=== PATIENT | female | born 1995 | race African-American/Black ===

== ENCOUNTER 2018-07-03 17:20 | Emergency (ER) | payer OTHER ==
[~2018-07-03] VITALS: Ht 170.2 cm; Wt 85.0 kg
[2018-07-03] MEDS ORDERED: ONDANSETRON HCL 4MG/2ML INJ IV ONE (19:30)
[2018-07-03] MEDS ORDERED: SODIUM CHLORIDE 0.9% 1,000 ML IV ONE (19:30)
[2018-07-03] MEDS ORDERED: DIPHENHYDRAMINE 50MG/ML VIAL IV ONE (19:30)
[2018-07-03 19:32] LABS: BASOPHILS % 0.5 % (0.0-2.0); EOSINOPHILS % 0.2 % (0.0-5.0); HEMATOCRIT. 36.1 % (36.0-48.0); LYMPHOCYTES % 9.3 % (20.0-50.0); MEAN CORPUSCULAR HEMOGLOBIN 31.3 pg (28.0-32.0); MEAN CORPUSCULAR VOLUME 94.3 fL (81.0-99.0); MEAN PLATELET VOLUME 8.4 fl (7.4-10.4); MONOCYTES % 1.2 % (2.0-8.0); NEUTROPHILS % 88.8 % (40.0-76.0); PLATELET 303 x1000/uL (130-400); RED BLOOD CELL COUNT 3.83 mill/uL (4.2-5.4); RED CELL DISTRIBUTION WIDTH 13.4 % (11.6-14.6)
[2018-07-03 19:34] LABS: CLARITY URINE CLEAR (CLEAR); COLOR URINE YELLOW (YELLOW); KETONES URINE 2+ (NEGATIVE); LEUKOCYTE ESTERASE URINE TRACE (NEGATIVE); NITRITE URINE NEGATIVE (NEGATIVE); OCCULT BLOOD URINE NEGATIVE (NEGATIVE); PH URINE 8.5 (4.5-8.0); PROTEIN URINE 1+ (NEGATIVE); SPECIFIC GRAVITY URINE 1.034 (1.005-1.030)
[2018-07-03 19:36] LABS: CHLORIDE 104 mEq/L (98-107)
[2018-07-03 23:40] VITALS: BP 99/61
== END 2018-07-04 00:12 | disposition home or self-care (01) ==
LOC: ER 17:20
DX: R10.9 Unspecified abdominal pain (principal); R11.0 Nausea
CPT/HCPCS: 36415; 80053; 81003; 81025; 83690; 85025; 96374; 96375; 99285; J1200; J2405; J7030; Z7610

== ENCOUNTER 2018-07-30 12:45 | Emergency (ER) | payer OTHER, MEDICAID ==
[~2018-07-30] VITALS: Ht 170.2 cm; Wt 73.0 kg
[2018-07-30] MEDS ORDERED: SODIUM CHLORIDE 0.9% 1,000 ML IV ONE ×2 (13:51→16:15)
[2018-07-30] MEDS ORDERED: ONDANSETRON HCL 4MG/2ML INJ IV STA (13:51)
[2018-07-30] MEDS ORDERED: FAMOTIDINE 20MG/2ML VIAL IV STA (13:51)
[2018-07-30] MEDS ORDERED: KETOROLAC 30MG/ML VIAL IV STA (13:51)
[2018-07-30 14:24] LABS: BASOPHILS % 0.7 % (0.0-2.0); EOSINOPHILS % 0.5 % (0.0-5.0); HEMATOCRIT. 33.1 % (36.0-48.0); HEMOGLOBIN. 11.1 g/dL (12.0-16.0); LYMPHOCYTES % 12.4 % (20.0-50.0); MEAN CORPUSCULAR HEMOGLOBIN 31.4 pg (28.0-32.0); MEAN CORPUSCULAR VOLUME 93.8 fL (81.0-99.0); MEAN PLATELET VOLUME 7.9 fl (7.4-10.4); MONOCYTES % 2.2 % (2.0-8.0); NEUTROPHILS % 84.2 % (40.0-76.0); PLATELET 401 x1000/uL (130-400); RED BLOOD CELL COUNT 3.53 mill/uL (4.2-5.4); RED CELL DISTRIBUTION WIDTH 13.5 % (11.6-14.6)
[2018-07-30 14:31] LABS: INR 1.1; PROTHROMBIN TIME 10.7 sec (9.1-11.1)
[2018-07-30 14:34] LABS: CHLORIDE 106 mEq/L (98-107); ETHANOL BLOOD < 10 mg/dL
[2018-07-30 14:35] LABS: HCG SCREEN NEGATIVE
[2018-07-30 14:40] LABS: CLARITY URINE CLEAR (CLEAR); COLOR URINE YELLOW (YELLOW); KETONES URINE 2+ (NEGATIVE); LEUKOCYTE ESTERASE URINE TRACE (NEGATIVE); NITRITE URINE NEGATIVE (NEGATIVE); OCCULT BLOOD URINE 1+ (NEGATIVE); PROTEIN URINE TRACE (NEGATIVE)
[2018-07-30 15:41] LABS: *AMPHETAMINES SCREEN URINE NEGATIVE (NEGATIVE); *BARBITURATES SCREEN URINE NEGATIVE (NEGATIVE); *BENZODIAZEPINES SCREEN URINE NEGATIVE (NEGATIVE); *COCAINE SCREEN URINE NEGATIVE (NEGATIVE); METHADONE URINE SCREEN NEGATIVE (NEGATIVE)
[2018-07-30 15:42] LABS: CANNABINOID URINE SCREEN NEGATIVE (NEGATIVE); OPIATES URINE SCREEN NEGATIVE (NEGATIVE); PHENCYCLIDINE URINE SCREEN NEGATIVE (NEGATIVE)
[2018-07-30 17:14] VITALS: BP 106/58
== END 2018-07-30 17:22 | disposition home or self-care (01) ==
LOC: ER 12:45
DX: R10.13 Epigastric pain (principal); E86.0 Dehydration; D64.9 Anemia, unspecified
CPT/HCPCS: 36415; 80053; 80305; 81003; 81025; 83690; 84703; 85025; 85610; 96361; 96374; 96375; 99285; G0482; J1885; J2405; J3490; J7030

== ENCOUNTER 2018-08-03 13:08 | Emergency (ER) | payer OTHER, MEDICAID ==
[~2018-08-03] VITALS: Ht 175.3 cm; Wt 72.7 kg
[2018-08-03] MEDS ORDERED: SODIUM CHLORIDE 0.9% 1,000 ML IV ONE ×2 (13:45→14:12)
[2018-08-03] MEDS ORDERED: ONDANSETRON HCL 4MG/2ML INJ IV STA ×2 (13:45→14:12)
[2018-08-03] MEDS ORDERED: KETOROLAC 30MG/ML VIAL IV STA ×2 (13:45→14:12)
[2018-08-03 14:12] LABS: CLARITY URINE CLOUDY (CLEAR); COLOR URINE YELLOW (YELLOW); KETONES URINE 1+ (NEGATIVE); LEUKOCYTE ESTERASE URINE NEGATIVE (NEGATIVE); NITRITE URINE NEGATIVE (NEGATIVE); OCCULT BLOOD URINE 3+ (NEGATIVE); PH URINE 6.5 (4.5-8.0); PROTEIN URINE NEGATIVE (NEGATIVE); SPECIFIC GRAVITY URINE 1.025 (1.005-1.030)
[2018-08-03 14:41] LABS: BASOPHILS % 0.7 % (0.0-2.0); EOSINOPHILS % 1.6 % (0.0-5.0); HEMATOCRIT. 32.7 % (36.0-48.0); HEMOGLOBIN. 11.1 g/dL (12.0-16.0); LYMPHOCYTES % 25.8 % (20.0-50.0); MEAN CORPUSCULAR HEMOGLOBIN 31.7 pg (28.0-32.0); MEAN CORPUSCULAR VOLUME 93.5 fL (81.0-99.0); MONOCYTES % 6.3 % (2.0-8.0); NEUTROPHILS % 65.6 % (40.0-76.0); PLATELET 350 x1000/uL (130-400); RED CELL DISTRIBUTION WIDTH 13.4 % (11.6-14.6)
[2018-08-03 14:46] LABS: INR 1.1
[2018-08-03 14:47] LABS: HCG SCREEN NEGATIVE
[2018-08-03 14:50] LABS: CHLORIDE 106 mEq/L (98-107)
[2018-08-03 14:59] LABS: *COCAINE SCREEN URINE NEGATIVE (NEGATIVE); METHADONE URINE SCREEN NEGATIVE (NEGATIVE); OPIATES URINE SCREEN NEGATIVE (NEGATIVE)
[2018-08-03 15:00] LABS: *AMPHETAMINES SCREEN URINE NEGATIVE (NEGATIVE); *BARBITURATES SCREEN URINE NEGATIVE (NEGATIVE); *BENZODIAZEPINES SCREEN URINE NEGATIVE (NEGATIVE); CANNABINOID URINE SCREEN NEGATIVE (NEGATIVE); PHENCYCLIDINE URINE SCREEN NEGATIVE (NEGATIVE)
[2018-08-03 17:25] VITALS: BP 100/64
== END 2018-08-03 17:40 | disposition home or self-care (01) ==
LOC: ER 13:08
DX: N83.201 Unspecified ovarian cyst, right side (principal); R10.30 Lower abdominal pain, unspecified
CPT/HCPCS: 36415; 76830; 76856; 80053; 80305; 81003; 81025; 83690; 84703; 85025; 85610; 96361; 96374; 96375; 99285; J1885; J2405; J7030

== ENCOUNTER 2019-07-29 09:14 | Emergency (ER) | payer OTHER ==
[~2019-07-29] VITALS: Ht 175.3 cm; Wt 73.0 kg
[2019-07-29] MEDS ORDERED: HYDROCODONE/ACETAMINOPHEN 5/325MG TABLET PO STA (09:49)
[2019-07-29] MEDS ORDERED: KETOROLAC 60MG/2ML VIAL IM STA (09:49)
[2019-07-29 10:15] LABS: CLARITY URINE CLEAR (CLEAR); COLOR URINE YELLOW (YELLOW); KETONES URINE NEGATIVE (NEGATIVE); LEUKOCYTE ESTERASE URINE NEGATIVE (NEGATIVE); NITRITE URINE NEGATIVE (NEGATIVE); OCCULT BLOOD URINE 2+ (NEGATIVE); PROTEIN URINE 1+ (NEGATIVE); SPECIFIC GRAVITY URINE 1.022 (1.005-1.030)
[2019-07-29 11:38] VITALS: BP 98/54
== END 2019-07-29 11:39 | disposition home or self-care (01) ==
LOC: ER 09:14
DX: N39.0 Urinary tract infection, site not specified (principal)
CPT/HCPCS: 81003; 81025; 96372; 99283; J1885; Z7610

== ENCOUNTER 2021-02-18 02:59 | Emergency (ER) | payer MEDICAID, OTHER | END 2021-02-18 03:52 | disposition left against medical advice (07) | LOC: ER 02:59 | DX: Z53.21 Procedure and treatment not carried out due to patient leaving prior to being seen by health care provider (principal) ==

== ENCOUNTER 2022-02-03 12:16 | Emergency (ER) | payer MEDICAID ==
[~2022-02-03] VITALS: Ht 175.3 cm; Wt 87.0 kg
[2022-02-03 13:04] LABS: CLARITY URINE CLOUDY (CLEAR); COLOR URINE YELLOW (YELLOW); KETONES URINE TRACE (NEGATIVE); LEUKOCYTE ESTERASE URINE TRACE (NEGATIVE); NITRITE URINE NEGATIVE (NEGATIVE); OCCULT BLOOD URINE NEGATIVE (NEGATIVE); PH URINE 6.5 (4.5-8.0); PROTEIN URINE NEGATIVE (NEGATIVE); SPECIFIC GRAVITY URINE 1.028 (1.005-1.030)
[2022-02-03] MEDS ORDERED: [UNRECOGNIZED DRUG - CODE] VG (13:43)
[2022-02-03 13:54] VITALS: BP 127/85
[2022-02-07 04:09] LABS: NEISSERIA GONORRHOEAE NAA Negative (Negative)
== END 2022-02-03 13:55 | disposition home or self-care (01) ==
LOC: ER 12:16
DX: N76.0 Acute vaginitis (principal); Z20.2 Contact with and (suspected) exposure to infections with a predominantly sexual mode of transmission
CPT/HCPCS: 81003; 81025; 87210; 87491; 87591; 99283